=== PATIENT | female | born 1945 | race Caucasian/White ===

== ENCOUNTER 2019-12-25 07:18 | Outpatient (CLI) | payer MEDICARE, OTHER, SELFPAY ==
[2019-12-26 23:56] LABS: COVID-19 RT-PCR Result NEGATIVE (Negative)
== END 2019-12-25 07:38 ==
PROVIDERS: PCP Internal Medicine; Visit Provider Family Medicine
DX: Z11.59 Encounter for screening for other viral diseases (principal); Z01.818 Encounter for other preprocedural examination
CPT/HCPCS: U0003

== ENCOUNTER 2019-12-29 03:08 | Outpatient (CLI) | payer MEDICARE, SELFPAY ==
[2019-12-29] MEDS: Inhaler, Assist Device 1 EACH MC (09:11)
[2019-12-29] MEDS: Albuterol HFA 18 GM 200 PUFF INH IH (09:11)
--- NOTE | 2020-01-03 09:40 | W.PFT ---
Date of service: 12/29/19 Time of Service: 08:13 Pulmonary Function Test Result Interpretation Spirometry: Shows no evidence of obstructive airways disease, no bronchodilator response Lung Volumes: Shows no evidence of restriction Diffusion Capacity: normal Airway Pressure: Normal Impression Normal pulmonary function test, clinical correlation recommended Clinical Correlation therefore is recommended.
== END 2019-12-29 03:28 ==
PROVIDERS: PCP Internal Medicine; Visit Provider Internal Medicine Pulmonary Disease
DX: R05 Cough (principal)
CPT/HCPCS: 94060; 94726; 94729